=== PATIENT | female | born 1990 | race Caucasian/White ===

== ENCOUNTER 2016-06-08 21:03 | Emergency (ER) ==
[2016-06-08 21:17] VITALS: BP 143/89; TEMP 99.3; BMI 30.7
--- NOTE | 2016-06-08 21:38 | DI ---
EXAM: Three views of the right toes. History: Right toe trauma. Comparison: Right foot radiograph 11/03/2009 Findings: No acute fracture or dislocation. No abnormal calcifications or radiopaque foreign nia s. Joint spaces are relatively preserved. Stable mild flattening of the second metatarsal head. So ft tissue swelling of the first digit. Impression: No acute osseous abnormality. Soft tissue swelling of the first digit.
--- NOTE | 2016-06-08 21:42 | ED.PDOC ---
[id number]: i hurt my toe Time Seen by Physician: 21:10 Mode of Arrival: Walk-In Information Source: Patient Exam Limitations: No limitations Primary Care Provider: SUMMER CONWAY Nursing and Triage Documentation Reviewed and Agree: Yes Musculoskeletal Complaint Exam - Ankle/Foot Complaint/Exam Location of Injury: Reports: Right, Toe #1 Mechanism of Injury: Reports: Trauma Onset/Duration: several hours Symptoms Are: Reports: Still present Onset of Pain: Reports: Immediate Initial Severity: Mild Current Severity: Mild Location: Reports: Discrete (left great toe) Character: Reports: Dull Alleviating: Reports: None Aggravating: Reports: Movement, Weight bearing Able to Bear Weight: Yes Associated Signs and Symptoms: Reports: Swelling Achilles Tendon Abnormality: No Tenderness: Present: Digits Differential Diagnosis: Infection, Closed Fracture, Open Fracture Review of Systems - Review Of Systems Constitutional: Reports: No symptoms Eyes: Reports: No symptoms Ears, Nose, Mouth, Throat: Reports: No symptoms Respiratory: Reports: No symptoms Cardiac: Reports: No symptoms GI: Reports: No symptoms : Reports: No symptoms Musculoskeletal: Reports: No symptoms Skin: Reports: No symptoms Neurological: Reports: No symptoms Endocrine: Reports: No symptoms Hematologic/Lymphatic: Reports: No symptoms All Other Systems: Reviewed and Negative Past Medical History - Past Medical History Previously Healthy: Yes Endocrine: Reports: Unknown Cardiovascular: Reports: Unknown Respiratory: Reports: Unknown Hematological: Reports: Unknown Gastrointestinal: Reports: Unknown Genitourinary: Reports: Unknown Neuro/Psych: Reports: Unknown Musculoskeletal: Reports: Unknown Cancer: Reports: Unknown Last Menstrual Period: na - has mirena - Surgical History General Surgical History: Reports: Unknown - Family History Family History: Reports: Unknown - Social History Smoking Status: Never smoker Hx Substance Use: No Alcohol Screening: None Lives: With family - Immunizations Tetanus Shot up to Date: Yes Physical Exam - Physical Exam Appearance: Well-appearing, No pain distress, Well-nourished Eyes: STEPHANE, EOMI, Conjunctiva clear ENT: Ears normal, Nose normal, Oropharynx normal Neck: Supple Respiratory: Airway patent, Breath sounds clear, Breath sounds equal, Respirations nonlabored Cardiovascular: RRR GI/: Soft Musculoskeletal: Normal strength, ROM intact, No edema, No calf tenderness Skin: Warm, Dry, Normal color Neurological: Sensation intact Psychiatric: Affect appropriate, Mood appropriate Interpretation - Radiology Interpretation Radiology Interpretation By: Radiologist Radiology Results: Negative Critical Care Note - Critical Care Note Total Time (mins): 0 Course - Course Orders, Labs, Meds: Orders Category Date Time Status Cephalexin [Keflex] MEDS 06/08/16 21:43 Discontinued 500 mg PO ONCE STA Ibuprofen Susp [Motrin Susp] MEDS 06/08/16 21:43 Discontinued 600 mg PO ONCE STA TOE(S) MIN 2 VIEWS Stat RADS 06/08/16 21:09 Completed Medications Discontinued Medications Generic Name Dose Route Start Last Admin Trade Name Thiago PRN Reason Stop Dose Admin Cephalexin 500 mg 06/08/16 21:43 06/08/16 21:47 Keflex PO 06/08/16 21:44 500 mg ONCE STA Administration Ibuprofen 600 mg 06/08/16 21:43 06/08/16 21:47 Motrin Susp PO 06/08/16 21:44 600 mg ONCE STA Administration Vital Signs: Temp Pulse Resp BP Pulse Ox 06/08/16 21:07 99.3 F 100 H 20 143/89 H 98 Departure - Departure Time of Disposition: 21:42 Disposition: HOME SELF-CARE Discharge Problem: Ingrowing nail Instructions: Ingrown Nail (ED) Condition: Good Pt referred to PMD for follow-up: Yes Additional Instructions: keflex 500mg bid x 7days---use motrin at home--see your pcp to get referral to podiatry Allergies/Adverse Reactions: Allergies Latex, Natural Rubber Allergy (Verified 06/08/16 21:14) Home Medications: Ambulatory Orders Naproxen 500 mg PO DAILY 06/08/16 Disposition Discussed With: Patient
[2016-06-08] MEDS ORDERED: KEFLEX PO STA (21:43)
[2016-06-08] MEDS ORDERED: MOTRIN SUSP PO STA (21:43)
== END 2016-06-08 21:52 | disposition home or self-care (01) ==
LOC: ED 21:03
DX: L60.0 Ingrowing nail (principal); S99.921A Unspecified injury of right foot, initial encounter
CPT/HCPCS: 99282; 99283

== ENCOUNTER 2017-04-28 08:59 | Emergency (ER) ==
[2017-04-28 09:14] VITALS: BP 138/86; TEMP 101.7; BMI 30.7
--- NOTE | 2017-04-28 09:40 | ED.PDOC ---
General ED Provider: Dr. ANGIE WILLIS Chief Complaint: Respiratory Complaint Stated Complaint: flu like symptoms Time Seen by Physician: 09:00 Mode of Arrival: Walk-In Information Source: Patient Exam Limitations: No limitations Primary Care Provider: CLAU BARBOUR Nursing and Triage Documentation Reviewed and Agree: Yes Reviewed sepsis parameters & appropriate labs ordered?: Yes (seen with entire nursing staff) System Inflammatory Response Syndrome: Not Applicable Sepsis Protocol: For patient's 13 years and over: Temp is 96.8 and below OR 101 and greater Pulse >90 BPM Resp >20/minute Acutely Altered Mental Status Are patient's symptoms suggestive of a new infection, such as: -Pneumonia -Skin, Soft Tissue -Endocarditis -UTI -Bone, Joint Infection -Implantable Device -Acute Abdominal Infection -Wound Infection -Meningitis -Blood Stream Catheter Infection -Unknown Respiratory Complaint Exam - Respiratory Complaint/Exam Onset/Duration: 2 days Symptoms Are: Still present Timing: Intermittent Initial Severity: Moderate Current Severity: Moderate Location: Throat, Chest Character: Reports: Non-productive cough Aggravating: Reports: URI Alleviating: Reports: Spontaneous resolution Associated Signs and Symptoms: Reports: URI, Nasal congestion. Denies: Rapid breathing, Dyspnea, Fever, Chills, Chest pain, Pleuritic chest pain, Wheezing, Hemoptysis, Dizziness, Calf pain, Calf swelling, Edema, Hoarseness, Sinus discomfort, Vomiting, Sore throat, Weight loss, Decreased oral intake, Increased thirst, Increased appetite, Increased urination Related History: Reports: Similar episode History of Healthcare-Acquired Pneumonia: No Related Surgical History: Reports: None Pulmonary Embolism Risk Factors: None Cardiac Risk Factors: Reports: None Pseudomonas Risk Factors: Reports: None Tuberculosis Risk Factors: Reports: None Status Asthmaticus Risk Factors: Reports: None Home Oxygen Use: No Recent Stress Test: No Recent Echo/LV Function: No Current Antibiotic Use: No Current Asthma Medication Use: No Respiratory Distress: None Inadequate Respiratory Effort: No Dysphagia Present: No Stridor Present: No JVD Present: No Accessory Muscle Use: No Retractions: Not Present Diminished Breath Sounds: No Sinus Tenderness: None Grunting Respirations: No Kussmaul Respirations: No Differential Diagnoses: Pneumonia, Bronchitis Review of Systems - Review Of Systems Constitutional: Reports: No symptoms Eyes: Reports: No symptoms Ears, Nose, Mouth, Throat: Reports: No symptoms Respiratory: Reports: Cough Cardiac: Reports: No symptoms GI: Reports: No symptoms : Reports: No symptoms Musculoskeletal: Reports: No symptoms Skin: Reports: No symptoms Neurological: Reports: No symptoms Endocrine: Reports: No symptoms Hematologic/Lymphatic: Reports: No symptoms All Other Systems: Reviewed and Negative Past Medical History - Past Medical History Previously Healthy: Yes Endocrine: Reports: Unknown Cardiovascular: Reports: Unknown Respiratory: Reports: Unknown Hematological: Reports: Unknown Gastrointestinal: Reports: Unknown Genitourinary: Reports: Unknown Neuro/Psych: Reports: Unknown Musculoskeletal: Reports: Unknown Cancer: Reports: Unknown Last Menstrual Period: 9 years ago merana iud - Surgical History General Surgical History: Reports: Unknown - Family History Family History: Reports: Unknown - Social History Smoking Status: Never smoker Hx Substance Use: No Alcohol Screening: None Physical Exam - Physical Exam Appearance: Well-appearing, No pain distress, Well-nourished Eyes: STEPHANE, EOMI, Conjunctiva clear ENT: Ears normal, Nose normal, Oropharynx normal Respiratory: Airway patent, Breath sounds clear, Breath sounds equal, Respirations nonlabored Cardiovascular: RRR, Pulses normal, No rub, No murmur GI/: Soft, Nontender, No masses, Bowel sounds normal, No Organomegaly Musculoskeletal: Normal strength, ROM intact, No edema, No calf tenderness Skin: Warm, Dry, Normal color Neurological: Sensation intact, Motor intact, Reflexes intact, Cranial nerves intact, Alert, Oriented Psychiatric: Affect appropriate, Mood appropriate Critical Care Note - Critical Care Note Total Time (mins): 0 Course - Course Orders, Labs, Meds: Orders Category Date Time Status MOLECULAR FLU A/B Stat LAB 04/28/17 09:33 Ordered MOLECULAR GROUP A STREP Stat LAB 04/28/17 09:33 Ordered CHEST, 2 VIEWS PA & LAT Stat RADS 04/28/17 09:16 Taken Vital Signs: Temp Pulse Resp BP Pulse Ox 04/28/17 09:01 101.7 F H 100 H 16 138/86 98 Departure - Departure Time of Disposition: 09:40 Disposition: HOME SELF-CARE Discharge Problem: Bronchitis, Viral syndrome Instructions: Acute Bronchitis (ED), Bronchospasm (ED), Viral Syndrome (ED) Condition: Good Pt referred to PMD for follow-up: Yes Additional Instructions: Please call your Family Physician as soon as possible to schedule a follow-up appointment. Allergies/Adverse Reactions: Allergies Latex, Natural Rubber Allergy (Verified 04/28/17 09:03) Home Medications: Ambulatory Orders 1 [No Reported Medications] 04/28/17 Disposition Discussed With: Patient
--- NOTE | 2017-04-28 10:04 | DI ---
EXAM: PA and lateral views of the chest HISTORY: Cough. COMPARISON: None FINDINGS: The cardiomediastinal silhouette is normal. There is no pneumothorax or pleural effusion. There is no consolidation, nodule or mass. The osseous structures are unremarkable. Surgical clips in the right upper quadrant. IMPRESSION: No acute cardiopulmonary process
== END 2017-04-28 10:26 | disposition home or self-care (01) ==
LOC: ED 08:59
DX: J40 Bronchitis, not specified as acute or chronic (principal); B34.9 Viral infection, unspecified
CPT/HCPCS: 87502; 87651; 99283